=== PATIENT | female | born 1965 | race Caucasian/White ===

== ENCOUNTER 2017-04-20 14:17 | Emergency (ER) | payer BC ==
[~2017-04-20 14:17] MED LIST: ACULAR10 ML IU; CIPRO PO; CLOTRIMAZOLE 1% TOP; ERYTHROMYCIN O3.5 GM OD; FISH OIL; JANUVIA; KOMBIGLYZE XR1 EAC2 PO; LIPITOR20 MG PO; LISINOPRIL-HCTZ1 T19 PO; METFORMIN HCL1000 M1 PO; MULTI VITAMIN1 EACH PO; TRICOR145 MG PO; TYLENOL #3 PO; VISTARIL PO; VITAMIN D
[2017-04-20] MEDS ORDERED: LIPITOR20 MG PO (14:30)
[2017-04-20] MEDS ORDERED: [UNRECOGNIZED DRUG - OTHER] (14:30)
[2017-04-20 15:18] LABS: BASOPHIL# 0.1 X10e3 (0-0.3); BASOPHIL% 1.3 % (0-2.5); EOSINOPHIL# 0.2 X10e3 (0-0.7); HEMATOCRIT 41.3 % (35.0-45.0); HEMOGLOBIN 14.1 gm/dL (12.0-16.0); LYMPHOCYTE# 1.9 X10e3 (1.0-3.5); LYMPHOCYTE% 20.4 % (17.0-45.0); MEAN CELL VOLUME 92.4 FL (83-96); MEAN CORPUSCULAR HEMOGLOBIN 31.5 PG (28-34); MEAN CORPUSCULAR HGB CONC 34.1 g/dL (30-36); MEAN PLATELET VOLUME 8.7 FL (6.5-11.5); MONOCYTE# 0.6 X10e3 (0-1.0); MONOCYTE% 6.1 % (3.0-12.0); NEUTROPHIL# 6.5 X10e3 (1.5-7.1); NEUTROPHIL% 70.2 % (40-75); PLATELET COUNT 176 X10e3 (140-420); RED BLOOD COUNT 4.47 X10e (3.90-5.30); RED CELL DISTRIBUTION WIDTH 13.1 % (11.0-15.5); WHITE BLOOD COUNT 9.2 X10e3 (4.0-10.5)
[2017-04-20 15:24] LABS: DIFF IND NO
[2017-04-20 16:05] LABS: CREATININE SERUM 0.5 mg/dL (0.6-1.4); GLOM FILT RATE Estimated 111.3 mL/min (>60); POTASSIUM 3.2 mmol/L (3.5-5.1)
== END 2017-04-20 17:30 | disposition home or self-care (01) ==
LOC: SED 14:17
PROVIDERS: Physician Assistant
DX: L02.211 Cutaneous abscess of abdominal wall (principal); L03.311 Cellulitis of abdominal wall; E11.9 Type 2 diabetes mellitus without complications; I10 Essential (primary) hypertension; Z90.49 Acquired absence of other specified parts of digestive tract; Z88.2 Allergy status to sulfonamides; Z88.1 Allergy status to other antibiotic agents; Z79.899 Other long term (current) drug therapy
CPT/HCPCS: 10060; 36415; 80048; 85025; 96365; 96366; 99284; J3370